=== PATIENT | male | born 1970 | race Caucasian/White ===

== ENCOUNTER 2017-10-29 14:47 | Emergency (ER) | payer OTHER ==
[~2017-10-29] VITALS: Ht 188 cm; Wt 99.8 kg
[~2017-10-29 14:47] MED LIST: DOXYCYCLINE 10100 MG PO; PREDNISONE 10 M10 MG PO
[2017-10-29] MEDS ORDERED: NOHOMEMEDICATIONS (15:20)
[2017-10-29] MEDS ORDERED: KEFLEX500 M1 PO (16:28)
[2017-10-29] MEDS ORDERED: TRAMADOL 50 MG50 MG PO (16:28)
[2017-10-29 16:50] VITALS: BP 143/88
== END 2017-10-29 16:51 | disposition home or self-care (01) ==
LOC: M.ERS 14:47
DX: S61.213A Laceration without foreign body of left middle finger without damage to nail, initial encounter (principal); Z88.5 Allergy status to narcotic agent; W26.8XXA Contact with other sharp object(s), not elsewhere classified, initial encounter; Y93.89 Activity, other specified; Y92.89 Other specified places as the place of occurrence of the external cause; Y99.8 Other external cause status

== ENCOUNTER 2017-11-14 10:07 | Emergency (ER) | payer OTHER ==
[~2017-11-14] VITALS: Ht 170.2 cm; Wt 90.7 kg
[~2017-11-14 10:07] MED LIST changes: +KEFLEX500 M1 PO; +NOHOMEMEDICATIONS; +TRAMADOL 50 MG50 MG PO
[2017-11-14 10:41] VITALS: BP 148/98
== END 2017-11-14 10:50 | disposition home or self-care (01) ==
LOC: M.ERS 10:07
DX: S61.211A Laceration without foreign body of left index finger without damage to nail, initial encounter (principal); Z88.5 Allergy status to narcotic agent; X58.XXXA Exposure to other specified factors, initial encounter; Y93.89 Activity, other specified; Y92.89 Other specified places as the place of occurrence of the external cause; Y99.8 Other external cause status

== ENCOUNTER → 2020-09-10 | Outpatient (CLI) | payer OTHER | LOC: M.MRI 14:30 | PROVIDERS: ATTEND Internal Medicine | DX: M51.37 Other intervertebral disc degeneration, lumbosacral region (principal); M47.816 Spondylosis without myelopathy or radiculopathy, lumbar region; M48.062 Spinal stenosis, lumbar region with neurogenic claudication; M54.42 Lumbago with sciatica, left side; R29.898 Other symptoms and signs involving the musculoskeletal system ==

== ENCOUNTER → 2020-09-26 | Outpatient (CLI) | payer OTHER ==
[~2020-09-26] MED LIST changes: +AZELASTIN-FLUTI23 GM; +NEURONTIN 300M300 M2 PO
== END ==
LOC: M.PC 09:50
PROVIDERS: ATTEND Anesthesiology Pain Medicine
DX: M47.816 Spondylosis without myelopathy or radiculopathy, lumbar region (principal); M48.061 Spinal stenosis, lumbar region without neurogenic claudication; M19.90 Unspecified osteoarthritis, unspecified site